=== PATIENT | male | born 1945 | race Caucasian/White ===

== ENCOUNTER 2024-01-08 09:22 | Outpatient (CLI) | payer MEDICARE, OTHER ==
[2024-01-08 10:20] VITALS: BP 126/58; O2SAT 99
[2024-01-08] MEDS: NS 1,000 ML IV ONE (10:41)
[2024-01-08] MEDS ORDERED: SODIUM CHLORIDE 0.9% INJ 10 ML SYR IV PRN (10:50)
[2024-01-08] MEDS: SODIUM CHLORIDE 0.9% INJ 10 ML SYR IV SCH (11:55)
[2024-01-08 12:10] VITALS: BP 129/62; O2SAT 99
== END 2024-01-08 12:15 ==
LOC: M INFU 09:22 → EDBD 10:30 → M INFU 12:15
PROVIDERS: ATTEND Specialist
DX: Z45.2 Encounter for adjustment and management of vascular access device (principal); Z88.8 Allergy status to other drugs, medicaments and biological substances

== ENCOUNTER 2024-01-11 08:47 | Outpatient (CLI) | payer MEDICARE, OTHER ==
[2024-01-11 09:25] VITALS: BP 120/64; O2SAT 100
[2024-01-11] MEDS: SODIUM CHLORIDE 0.9% INJ 10 ML SYR IV ONE ×2 (09:31)
[2024-01-11] MEDS: NS 1,000 ML IV ONE (09:31)
[2024-01-11 10:39] VITALS: BP 160/79; O2SAT 100
== END 2024-01-11 10:40 ==
LOC: EDBD → M INFU 08:47 → EDUNIT# 10:00 → M INFU 10:40
PROVIDERS: ATTEND Specialist
DX: Z45.2 Encounter for adjustment and management of vascular access device (principal); Z88.8 Allergy status to other drugs, medicaments and biological substances; Z88.5 Allergy status to narcotic agent